=== PATIENT | female | born 1980 | race Caucasian/White ===

== ENCOUNTER 2016-06-13 13:27 | Outpatient (CLI) | payer OTHER ==
[2016-06-13 14:11] LABS: HEMOGLOBIN 10.9 gm/dl (12.3-15.3); RED BLOOD COUNT 3.66 M/UL (4.00-5.10); WHITE BLOOD COUNT 12.7 K/UL (4.5-11.0)
== END 2016-06-13 14:40 | disposition home or self-care (01) ==
LOC: GENOP 13:27
PROVIDERS: Obstetrics & Gynecology
DX: Z01.812 Encounter for preprocedural laboratory examination (principal); O34.219 Maternal care for unspecified type scar from previous cesarean delivery; Z3A.00 Weeks of gestation of pregnancy not specified
CPT/HCPCS: 36415; 81001; 85025; J7120

== ENCOUNTER 2016-06-14 07:30 | Inpatient (IN) | payer OTHER ==
[~2016-06-14] VITALS: Ht 172.7 cm; Wt 136.5 kg
[2016-06-15 03:18] LABS: HEMOGLOBIN 10.3 gm/dl (12.3-15.3)
[2016-06-15] MEDS ORDERED: NORCO 5-325 TA1 EACH PO (14:28)
== END 2016-06-15 14:25 | disposition home or self-care (01) | DRG 765 ==
LOC: OB 09:33
PROVIDERS: ADMIT Obstetrics & Gynecology
PROC: 3E0R3CZ (ICD-10-PCS; 2016-06-14)
PROC: 3E0234Z Introduction of Serum, Toxoid and Vaccine into Muscle, Percutaneous Approach (ICD-10-PCS; 2016-06-14)
PROC: 10D00Z1 Extraction of Products of Conception, Low, Open Approach (ICD-10-PCS; principal; 2016-06-14 07:30)
DX: O10.02 Pre-existing essential hypertension complicating childbirth (principal); Z68.42 Body mass index [BMI] 45.0-49.9, adult; O34.219 Maternal care for unspecified type scar from previous cesarean delivery; N85.8 Other specified noninflammatory disorders of uterus; O99.214 Obesity complicating childbirth; E66.01 Morbid (severe) obesity due to excess calories; O99.02 Anemia complicating childbirth; D64.9 Anemia, unspecified; O09.523 Supervision of elderly multigravida, third trimester; O09.213 Supervision of pregnancy with history of pre-term labor, third trimester; Z3A.38 38 weeks gestation of pregnancy; Z37.0 Single live birth; Z23 Encounter for immunization; Z87.440 Personal history of urinary (tract) infections; Z79.899 Other long term (current) drug therapy; Z83.3 Family history of diabetes mellitus; Z82.49 Family history of ischemic heart disease and other diseases of the circulatory system; Z83.49 Family history of other endocrine, nutritional and metabolic diseases; Z84.1 Family history of disorders of kidney and ureter; Z83.79 Family history of other diseases of the digestive system; Z83.6 Family history of other diseases of the respiratory system; Z80.9 Family history of malignant neoplasm, unspecified
CPT/HCPCS: 36415; 82800; 85014; 85018; 90715; C9113; J0360; J0690; J2405; J2590; J2765; J3430; J7120